=== PATIENT | male | born 1990 | race Caucasian/White ===

== ENCOUNTER 2021-05-26 18:46 | Emergency (ER) | payer MEDICAID, OTHER ==
[~2021-05-26] VITALS: Ht 188 cm; Wt 102.1 kg
[2021-05-26 18:55] VITALS: BP 136/85
[2021-05-26] MEDS ORDERED: TETANUS-DIPTH-ACEL PERTUSSIS 0.5ML SYR Tdap IM ONE (20:00)
[2021-05-26] MEDS ORDERED: MUPI2CRE17 EX ×2 (20:15→20:22)
[2021-05-26] MEDS ORDERED: CLIN150C8 PO (20:15)
[2021-05-26] MEDS ORDERED: CLIN150C PO (20:22)
[2021-05-26 20:58] LABS: Basophils # (auto) 0.1 10 ^3/uL (0-0.2); Basophils % (auto) 1.1 % (0.0-2.0); Eosinophils # (auto) 0.4 10 ^3/uL (0-0.8); Eosinophils % (auto) 4.5 % (0.0-7.0); Hematocrit 39.8 % (41.0-53.0); Hemoglobin 13.8 g/dL (13.5-17.5); Lymphocytes # (auto) 1.2 10 ^3/uL (0.4-5.4); Lymphocytes % (auto) 12.1 % (10.0-50.0); Mean Corpuscular Hemoglobin 29.5 pg (28.0-32.0); Mean Corpuscular Hgb Conc. 34.6 g/dL (32.0-36.0); Mean Corpuscular Volume 85.3 fL (80.0-100.0); Monocytes # (auto) 0.8 10 ^3/uL (0-1.3); Monocytes % (auto) 7.6 % (0.0-12.0); Neutrophils # (auto) 7.4 10 ^3/uL (1.6-8.6); Neutrophils % (auto) 74.7 % (37.0-80.0); Red Blood Cells 4.66 10^6/uL (4.5-5.90); Red Cell Distribution Width 13.6 % (11.8-14.3); White Blood Cell 9.9 10^3/uL (4.4-10.8)
[2021-05-26 21:22] LABS: Albumin 3.6 g/dL (3.4-5.0); Calcium 8.9 mg/dL (8.5-10.1)
[2021-05-26 21:26] LABS: BUN/Creatinine Ratio 10.7; Bilirubin, Total 0.4 mg/dL (0.2-1.0); Total Protein 7.2 g/dL (6.4-8.2)
== END 2021-05-26 20:51 | disposition home or self-care (01) ==
LOC: ER 18:49
DX: A49.02 Methicillin resistant Staphylococcus aureus infection, unspecified site (principal); F17.210 Nicotine dependence, cigarettes, uncomplicated
CPT/HCPCS: 36415; 80053; 85025; 87077; 87186; 87205; 90471; 90715

== ENCOUNTER 2021-12-09 21:40 | Emergency (ER) | payer MEDICAID ==
[~2021-12-09] VITALS: Ht 188 cm; Wt 100.0 kg
[~2021-12-09 21:40] MED LIST: CLIN150C PO; CLIN150C8 PO; MUPI2CRE17 EX
[2021-12-09 22:40] VITALS: BP 115/74
[2021-12-10] MEDS ORDERED: MUPI2CRE17 EX (02:31)
[2021-12-10] MEDS ORDERED: BACDST PO (02:31)
[2021-12-10] MEDS ORDERED: CEPH-510 PO (02:31)
== END 2021-12-10 02:47 | disposition home or self-care (01) ==
LOC: ER 21:40
DX: N48.89 Other specified disorders of penis (principal); B95.62 Methicillin resistant Staphylococcus aureus infection as the cause of diseases classified elsewhere; F17.210 Nicotine dependence, cigarettes, uncomplicated; Z79.2 Long term (current) use of antibiotics; Z79.899 Other long term (current) drug therapy

== ENCOUNTER 2023-02-24 15:23 | Emergency (ER) | payer MEDICAID ==
[~2023-02-24] VITALS: Ht 188 cm; Wt 116.9 kg
[~2023-02-24 15:23] MED LIST changes: +BACDST PO; +CEPH-510 PO; +CLIN150C18 PO; -CLIN150C8 PO
[2023-02-24 17:02] LABS: Hematocrit 38.6 % (41.0-53.0); Hemoglobin 12.8 g/dL (13.5-17.5); Mean Corpuscular Hemoglobin 28.6 pg (28.0-32.0); Mean Corpuscular Hgb Conc. 33.1 g/dL (32.0-36.0); Mean Corpuscular Volume 86.4 fL (80.0-100.0); Red Blood Cells 4.47 10^6/uL (4.5-5.90); Red Cell Distribution Width 13.8 % (11.8-14.3); White Blood Cell 9.4 10^3/uL (4.4-10.8)
[2023-02-24 17:03] LABS: Basophils % (manual) 0 (0.0-2.0); Blast Cells 0; Eosinophils % (manual) 0 (0-7); Promyelocytes % 0; Reactive Lymphocytes 0
[2023-02-24 17:28] LABS: Anion Gap 5 (5-15)
[2023-02-24 17:36] LABS: CRP High Sensitivity 4.28 mg/dL (<1.0)
[2023-02-24 18:07] LABS: Alanine Aminotransferase 23 U/L (7-40); Albumin 4.5 g/dL (3.2-4.8); Alkaline Phosphatase 74 U/L (46-116); Aspartate Aminotransferase 18 U/L (13-40); BUN/Creatinine Ratio 10.1 (10.0-20.0); Bilirubin, Total 0.2 mg/dL (0.2-1.0); Blood Urea Nitrogen 8 mg/dL (9-23); Calcium 9.4 mg/dL (8.5-10.1); Carbon Dioxide 30 mmol/L (20-30); Chloride 104 mmol/L (98-107); Glucose 92 mg/dL (74-106); Potassium 4.3 mmol/L (3.5-5.1); Sodium 139 mmol/L (136-145); Total Protein 7.3 g/dL (5.7-8.2)
[2023-02-24 18:10] LABS: Erythrocyte Sedimentation Rate 41 mm/hr (0-20)
[2023-02-24 18:14] LABS: Band Neutrophils % (manual) 8; Lymphocytes % (manual) 19 (10.0-50.0); Metamyelocytes % 1; Monocytes % (manual) 8 (0-12); Myelocytes % 1; Platelet Estimate Adequate
[2023-02-24] MEDS ORDERED: CLIN300C70 PO (22:48)
[2023-02-24 23:06] VITALS: BP 92/56; PULSE 89; RESP 18; TEMP 97.7; O2SAT 97
== END 2023-02-24 23:03 | disposition home or self-care (01) ==
LOC: ER 15:23
DX: L03.116 Cellulitis of left lower limb (principal); F17.210 Nicotine dependence, cigarettes, uncomplicated; Z79.2 Long term (current) use of antibiotics; Z79.899 Other long term (current) drug therapy
CPT/HCPCS: 36415; 73590; 80053; 83605; 85007; 85027; 85652; 86141

== ENCOUNTER 2023-05-08 23:22 | Emergency (ER) | payer MEDICAID ==
[~2023-05-08] VITALS: Ht 188 cm; Wt 113.6 kg
[~2023-05-08 23:22] MED LIST changes: +CLIN300C70 PO
[2023-05-08 23:36] VITALS: BP 119/85; PULSE 99; RESP 16; TEMP 98.1
[2023-05-09] MEDS ORDERED: cefTRIAXone SOD 1,000 MG VL IM ONE (00:15)
[2023-05-09] MEDS ORDERED: CEPH500C PO (00:18)
[2023-05-09 00:40] VITALS: O2SAT 99
== END 2023-05-09 02:00 | disposition home or self-care (01) ==
LOC: ER 23:22
DX: L03.116 Cellulitis of left lower limb (principal); L03.115 Cellulitis of right lower limb; F17.210 Nicotine dependence, cigarettes, uncomplicated; Z79.2 Long term (current) use of antibiotics; Z79.899 Other long term (current) drug therapy
CPT/HCPCS: 86592; 96372; 99283; J0696

== ENCOUNTER 2023-06-02 01:58 | Inpatient (IN) | payer MEDICAID ==
[~2023-06-02] VITALS: Ht 188 cm; Wt 125.0 kg
[~2023-06-02 01:58] MED LIST changes: +CEPH500C PO
[2023-06-02 04:14] LABS: Basophils # (auto) 0.1 10 ^3/uL (0-0.2); Basophils % (auto) 0.8 % (0.0-2.0); Eosinophils # (auto) 0.2 10 ^3/uL (0-0.8); Eosinophils % (auto) 1.9 % (0.0-7.0); Lymphocytes # (auto) 1.7 10 ^3/uL (0.4-5.4); Lymphocytes % (auto) 16.7 % (10.0-50.0); Mean Corpuscular Hemoglobin 28.4 pg (28.0-32.0); Mean Corpuscular Hgb Conc. 33.4 g/dL (32.0-36.0); Mean Corpuscular Volume 85.3 fL (80.0-100.0); Monocytes # (auto) 1.1 10 ^3/uL (0-1.3); Monocytes % (auto) 10.9 % (0.0-12.0); Neutrophils # (auto) 6.9 10 ^3/uL (1.6-8.6); Neutrophils % (auto) 69.7 % (37.0-80.0); Red Blood Cells 4.22 10^6/uL (4.5-5.90); Red Cell Distribution Width 14.1 % (11.8-14.3); White Blood Cell 9.9 10^3/uL (4.4-10.8)
[2023-06-02 04:29] LABS: Chloride 101 mmol/L (98-107); Potassium 4.2 mmol/L (3.5-5.1); Sodium 138 mmol/L (136-145)
[2023-06-02 04:30] LABS: Anion Gap 4 (5-15); Carbon Dioxide 33 mmol/L (20-30)
[2023-06-02 04:31] LABS: Calcium 9.4 mg/dL (8.7-10.4)
[2023-06-02 04:35] LABS: BUN/Creatinine Ratio 11.5 (10.0-20.0); Blood Urea Nitrogen 10 mg/dL (9-23); Glucose 100 mg/dL (74-106)
[2023-06-02] MEDS: SODIUM CHLORIDE 0.9% 500 ML IV ONE (07:56)
[2023-06-02] MEDS: CLINDAMYCIN 600MG IV 50 ML IV ONE (08:19)
[2023-06-02 08:36] LABS: Erythrocyte Sedimentation Rate 32 mm/hr (0-20)
[2023-06-02] MEDS ORDERED: ACETAMINOPHEN 325 MG TAB PO PRN (09:15)
[2023-06-02] MEDS ORDERED: ONDANSETRON HCL 4 MG/2 ML VIAL IV PRN (09:15)
[2023-06-02] MEDS ORDERED: VANCOMYCIN PER PHARMACY 0 MG IV SCH (09:15)
[2023-06-02] MEDS: VANCOMYCIN 1GM/200ML 200 ML IV ONE (10:15)
[2023-06-02 10:26] LABS: Lactic Acid w/Reflex 2.2 mmol/L (0.4-2.0)
[2023-06-02] MEDS: ENOXAPARIN SOD 40 MG/0.4 ML SYRINGE SC SCH (11:36)
[2023-06-02] MEDS: FAMOTIDINE 20 MG TAB PO SCH (11:37)
[2023-06-02] MEDS: LACTATED RINGER'S 1,000 ML IV ONE (12:11)
[2023-06-02] MEDS: SODIUM CHLOR 0.9% PF (SALINE LOCK) 10ML VIAL/SYR IV SCH (14:00)
[2023-06-02] MEDS: PIPERACILLIN-TAZOB 3.375GM 100 ML IV SCH (15:15)
[2023-06-02 18:30] VITALS: BP 142/67; PULSE 65; RESP 18; TEMP 98.6; O2SAT 97
[2023-06-02 19:00] VITALS: BP 129/70; PULSE 81; RESP 17; TEMP 97.7; O2SAT 98
[2023-06-02] MEDS: HYDROcodone-ACET 5/325MG TAB PO PRN (19:28)
[2023-06-02 20:00] VITALS: BP 129/70; PULSE 81; RESP 17; TEMP 97.7; O2SAT 98
[2023-06-02] MEDS: VANCOMYCIN 1GM/200ML 200 ML IV SCH (20:29)
[2023-06-02 22:00] VITALS: BP 129/70; PULSE 81; RESP 17; TEMP 97.7; O2SAT 98
[2023-06-03 05:00] VITALS: BP 123/70; PULSE 72; RESP 16; TEMP 98.2; O2SAT 96
[2023-06-03 09:05] VITALS: BP 109/60; PULSE 73; RESP 20; TEMP 98.1; O2SAT 91
[2023-06-03] MEDS ORDERED: FAMOTIDINE 20 MG TAB PO SCH (10:00)
[2023-06-03 12:59] VITALS: BP 127/78; PULSE 78; RESP 17; TEMP 97.5; O2SAT 98
[2023-06-03 17:00] VITALS: BP 124/75; PULSE 66; RESP 17; TEMP 97.8; O2SAT 99
[2023-06-03] MEDS: VANCOMYCIN 1GM/200ML 200 ML IV SCH (17:50)
[2023-06-03 20:00] VITALS: PULSE 89; RESP 18; O2SAT 98
[2023-06-03 22:00] VITALS: BP 132/85; PULSE 89; RESP 18; TEMP 97.9; O2SAT 98
[2023-06-03] MEDS: MUPIROCIN 2% OINT 15gm or 22gm FOR MRSA NARES EACHNOSTRI SCH (22:00)
[2023-06-04 05:00] VITALS: BP 105/47; PULSE 66; RESP 16; TEMP 97.4; O2SAT 98
[2023-06-04 08:00] VITALS: BP 106/52; PULSE 60; RESP 21; TEMP 98.3; O2SAT 96
[2023-06-04 08:54] VITALS: BP 106/52; PULSE 60; RESP 21; TEMP 98.3; O2SAT 96
[2023-06-04 17:00] VITALS: BP 124/75; PULSE 56; RESP 20; TEMP 98.7; O2SAT 96
[2023-06-04 20:00] VITALS: PULSE 69; RESP 18; O2SAT 96
[2023-06-04 22:00] VITALS: BP 123/58; PULSE 69; RESP 20; TEMP 97.9; O2SAT 99
== END 2023-06-05 02:30 | disposition left against medical advice (07) | DRG 383 ==
LOC: ER 01:58 → OVERFLOW 09:13 → CENTRAL 18:58
PROVIDERS: ADMIT Internal Medicine; ATTEND Internal Medicine
DX: L03.115 Cellulitis of right lower limb (principal); E86.0 Dehydration; F15.10 Other stimulant abuse, uncomplicated; F17.210 Nicotine dependence, cigarettes, uncomplicated; Z86.14 Personal history of Methicillin resistant Staphylococcus aureus infection
CPT/HCPCS: 36415; 73700; 80048; 80202; 82565; 83036; 83605; 85025; 85652; 87077; 87081; 87186; 87205; 93971; 97163; G0378; J2543; J3490